=== PATIENT | female | born 1935 | race Caucasian/White ===

== ENCOUNTER 2020-11-25 23:10 | Emergency (ER) | payer MEDICARE, SELFPAY ==
[2020-11-25 23:16] VITALS: BP 188/91; PULSE 88; RESP 16; TEMP 35.9; O2SAT 97; BMI 25.8
--- NOTE | 2020-11-25 23:34 | DI.RAD.S_ITS ---
PROCEDURE: XR FINGER LT MIN 2V INDICATIONS: fall, swollen finger, displaced and reduced [employer]ISH[employer] TECHNIQUE: AP hand, 2 views of the left 4th finger(s) acquired. COMPARISON: None. FINDINGS: Bones: Dorsal dislocation of the 4th PIP joint. Soft tissues: No suspicious soft tissue calcifications. IMPRESSION: 4th PIP joint dislocation. Dictated by: Faby Smith MD, PhD on 11/26/2020 at 6:59 Approved by: Faby Smith MD, PhD on 11/26/2020 at 7:01
--- NOTE | 2020-11-25 23:49 | DI.RAD.S_ITS ---
PROCEDURE: XR ELBOW LT MIN 3V INDICATIONS: fall, left elbow pain. TECHNIQUE: 3 views of the elbow were acquired. COMPARISON: None. FINDINGS: Bones: No fractures or dislocations. No suspicious bony lesions. Elbow osteoarthritis is noted. Soft tissues: No elbow joint effusion. No suspicious soft tissue calcifications. IMPRESSION: No fracture. No acute osseous lesion. If symptoms and/or clinical suspicion for pathology persists, further assessment with repeat radiographs (7-10 days) or advanced imaging (e.g. CT, MRI or bone scan) should be considered. Dictated by: Faby Smith MD, PhD on 11/26/2020 at 9:01 Approved by: Faby Smith MD, PhD on 11/26/2020 at 9:02
--- NOTE | 2020-11-26 01:05 | PC.NURSE ---
Two rings cut and removed from left ring finger. Patient tolerated well.
--- NOTE | 2020-11-26 06:17 | ED_ITS ---
HPI - Fall General Chief Complaint: Fall Stated Complaint: finger injury/laceration Time Seen by Provider: 11/26/20 00:00 Source: patient Mode of arrival: Ambulatory History of Present Illness HPI Narrative: 85-year-old female nonsmoker with noncontributory medical history presents with family in the chief complaint of a ground level fall resulting in a left 4th finger injury. She was attempting to get out of the car before it had completely part and she tripped and fell onto an outstretched hand. She she suffered an obvious injury to her finger and states that it was actually pointed sideways initially until they pulled on it some and made it look a bit better but she now has pain and is unable to move it because of of perceived mechanical obstruction. She denies any head neck or back pain. She is awake and alert has full recall of the event. She denies other injury other than of superficial abrasion on her left elbow. Related Data Allergies Allergy/AdvReac Type Severity Reaction Status Date / Time No Known Drug Allergies Allergy Verified 11/25/20 23:20 Review of Systems Review of Systems Narrative: GENERAL: Denies chills, fatigue, malaise, fever, sweats. HEENT: Denies sinus pain, ear pain, sore throat, difficulty swallowing, dizziness. RESPIRATORY: Denies dyspnea, cough, wheezing, hemoptysis, sputum. CARDIOVASCULAR: Denies chest pain, palpitations, orthopnea, edema, GASTROINTESTINAL: Denies nausea, vomiting, abdominal pain, diarrhea, constipation, melena. : Denies dysuria, frequency, incontinence, hematuria, urinary retention. MUSCULOSKELETAL: See HPI SKIN: Denies rash, skin lesions, or other NEUROLOGIC: Denies weakness, headache, numbness, change in speech, confusion, seizures, incoordination. PSYCHIATRIC: No concerning psychosocial issues. 12 point review of systems is negative except for those stated above Patient History Social History Smoking Status: Never smoker Smoking Status: Never smoker Substance Use Type: does not use Exam Narrative Exam Narrative: GEN: AOx3 and in mild distress, GCS 15 EYES: Pupils are equal, round, and reactive to light and accommodation. Extraoccular muscles are intact bilaterally. There is no subconjunctival hemorrhage or exudate. CHEST: Lungs are clear to auscultation bilaterally and free of wheezes, rales, or rhonchi. Heart rate is regular rhythm, there are no murmurs, clicks, rubs, or gallops. There is no chest wall tenderness. ABD: Abdomen is soft and nontender. There is no guarding or rebound. Bowel sounds are normal in all 4 quadrants. There is no mass or organomegaly. EXT: Left 4th finger with deformity and swelling, superficial abrasions but neurovascularly intact. She has no pain in hand or wrist. She has a very superficial abrasion on her lateral elbow but no pain with flexion, extension or pronation or supination. Full painless ROM of all extremities with no loss of sensation or strength. SKIN: Warm, pink, and dry. No erythema or rash Initial Vital Signs Initial Vital Signs: Vital Signs Temperature 96.6 F L 11/25/20 23:16 Pulse Rate 88 11/25/20 23:16 Respiratory Rate 16 11/25/20 23:16 Blood Pressure 188/91 H 11/25/20 23:16 Pulse Oximetry 97 11/25/20 23:16 Procedures Orthopedic Joint Reduction Joint #1: Time Out Performed: Yes Side: left Joint Reduction Location: finger Technique used: direct manipulation Post-reduction neuro exam: intact Post-reduction vascular: intact Splint Applied: Yes Patient Tolerated Procedure: Well Orthopedic Splinting/Casting Injury #1: Side: left Upper Extremity Injury Location: finger Upper Extremity Immobilizer: aluminum form splint Course Orders Ordered: ED Orders 11/25/20 23:34 XR finger LT min 2V Stat 11/25/20 23:49 XR elbow LT min 3V Stat Vital Signs Vital signs: Vital Signs - 8 hr 11/25/20 23:16 Temperature 96.6 F L Pulse Rate 88 Respiratory Rate 16 Blood Pressure 188/91 H Pulse Oximetry 97 MDM - Fall Imaging Data Extremity x-ray #1: Radiologist's Impression: Dislocation of PIP without evidence of fracture Extremity x-ray #2: Radiologist's Impression: Elbow without evidence of fracture [facility] Narrative Medical decision making narrative: Patient has a very reassuring exam, finger dislocation easily reduced without analgesia. She was placed in a splint and extensive return precautions were given as well as importance of follow-up given the high likelihood of a ligamentous or tendinous injury. She expressed her understanding of the diagnosis and plan. Discharge Plan Departure Patient Disposition: Home Clinical Impression: Closed dislocation finger, proximal interphalangeal joint, traumatic Instructions: How to Prevent Falls Activity Restrictions/Additional Instructions: *You have been diagnosed with [fall with finger dislocation ] *What to do: *Please continue to take your regular medications as directed. [ ] New medication prescriptions sent to your pharmacy: [ ] [ ] New medication written as a paper prescription [x ] No new medications given *Please follow up with your primary care provider in 2-3 days, call for an appointment. Let them know you were seen in the Emergency Department and that we ask that you be seen in follow up. We will electronically transmit a record of today's note if your PCP is in our system *If you do not have a primary care provider please contact the [facility] Resource line at [phone]. They will ask some questions about your medical history and help get you set up with a doctor in the community. *Return to Emergency Department if you should have any new, worsening or co ncerning symptoms, such as [fever greater than 101 F, shaking chills, worsening pain, persistent vomiting or other bothersome symptoms]
== END 2020-11-26 01:09 | disposition home or self-care (01) ==
PROVIDERS: Emergency Provider Emergency Medicine
DX: S63.285A Dislocation of proximal interphalangeal joint of left ring finger, initial encounter (principal); W19.XXXA Unspecified fall, initial encounter
CPT/HCPCS: 26770; 29130; 73080; 73140; 99283